=== PATIENT | male | born 1965 | race Caucasian/White ===

== ENCOUNTER 2017-11-12 09:57 | Outpatient (CLI) | payer MEDICARE, MEDICAID ==
[~2017-11-12 09:57] MED LIST: AMBIEN10 M1 ORAL; AMBIEN5 MG ORAL; CHLORDIAZEPOXIDE PO; ESCITALOPRAM OX10 MG ORAL; NALTREXONE HCL50 MG PO; NICODERM CQ1 EAC1 TDERMAL; NORVIR100 MG ORAL; PRINIVIL20 MG ORAL; REGLAN10 MG ORAL; REYATAZ150 MG ORAL; TRUVADA1 TAB ORAL; VALIUM10 MG ORAL; ZOFRAN4 M3 ORAL
--- NOTE | 2017-11-12 12:50 | Diagnostic Imaging Report ---
Indication: Dyspnea Comparison: 04/08/2014 2 views of the chest obtained. Findings: The interstitium of the lung appears slightly more prominent but this is felt to be more technical in nature. Accounting for differences in technique there is no change compared to the 2013 examination. There is suggestion of mild bronchial wall thickening and prominence of the bronchovascular markings centrally. Heart is normal in size. No pleural effusion seen. No consolidation or infiltrate identified. IMPRESSION: No acute disease identified. Prominence of bronchovascular markings centrally likely accounted for by chronic bronchitis and accentuated technique. Findings discussed with Dr. Alcaraz via telephone
== END 2017-11-12 11:57 | disposition home or self-care (01) ==
LOC: RAD 09:57
DX: J45.20 Mild intermittent asthma, uncomplicated (principal)
CPT/HCPCS: 71046

== ENCOUNTER 2018-01-02 11:23 | Inpatient (IN) | payer MEDICARE, MEDICAID ==
[~2018-01-02] VITALS: Ht 172.7 cm; Wt 77.6 kg
[2018-01-02] MEDS ORDERED: LORazepam 0.5mg tab ORAL PRN (13:30)
[2018-01-02] MEDS ORDERED: Ritonavir 100mg tab ORAL SCH (13:30)
--- NOTE | 2018-01-02 14:08 | Infectious Diseases Prog Note ---
Assessment/Plan Assessment/Plan Full consult to follow: A) 1) refractory genital herpes simplex virus infection 2) drug rash 3) pmh noted P) 1) iv acyclovir 2) observe clinically 3) d/w Dr. Alcaraz 4) thank you Subjective Allergies: Coded Allergies: PREDNISONE (Verified Allergy, Mild, 04/07/14) UPSET STOMACNH VANCOMYCIN (Verified Allergy, Mild, Rash, 04/07/14) Objective Current Medications Medications (Trade) Dose Ordered Sig/Maryuri Route PRN Reason Start Time Stop Time Status Last Admin Dose Admin Acetaminophen (Tylenol) 650 mg Q4H PRN ORAL Mild Pain/Temp > 100.5 01/02/18 13:30 02/01/18 13:29 UNV Acyclovir 750 mg/ Sodium Chloride 110 ml @ 110 mls/hr Q8HR IVPB 01/02/18 14:00 02/01/18 13:59 UNV Ceftriaxone Sodium 1 gm/ Dextrose 55 ml @ 110 mls/hr Q24H IVPB 01/02/18 13:30 01/09/18 13:29 UNV Diphenhydramine HCl (Benadryl) 50 mg Q6H PRN ORAL Itching 01/02/18 13:30 02/01/18 13:29 UNV Heparin Sodium (Porcine) (Heparin 5000 units/ml) 5,000 units EVERY 12 HOURS SUBQ 01/02/18 21:00 02/01/18 20:59 UNV Lisinopril (Prinivil) 20 mg DAILY ORAL 01/03/18 09:00 02/02/18 08:59 UNV Lorazepam (Ativan) 0.5 mg EVERY 4 HOURS PRN ORAL For Anxiety 01/02/18 13:30 01/09/18 13:29 UNV Methylprednisolone Sodium Succinate (Solu-MEDROL) 20 mg DAILY IVP 01/02/18 13:30 02/01/18 13:29 UNV Morphine Sulfate (Morphine Sulfate) 2 mg Q4H PRN IVP For Pain 01/02/18 13:30 01/09/18 13:29 UNV Non-Formulary Medication (Non-Formulary Med) 1 ea DAILY ORAL 01/02/18 13:30 02/01/18 13:29 UNV Non-Formulary Medication (Non-Formulary Med) 1 ea DAILY ORAL 01/02/18 13:30 02/01/18 13:29 UNV Ondansetron HCl (Zofran) 4 mg Q6H PRN IVP Nausea & Vomiting 01/02/18 13:30 02/01/18 13:29 UNV Ritonavir (Norvir) 100 mg DAILY ORAL 01/02/18 13:30 02/01/18 13:29 UNV Zolpidem Tartrate (Ambien) 10 mg HSPRN PRN ORAL Insomnia 01/02/18 13:30 01/09/18 13:29 UNV JERRELL FAIRCHILD Jan 02, 2018 14:08
[2018-01-02] MEDS: Solu-MEDROL 40mg Inj IVP SCH (15:46)
[2018-01-02 16:00] VITALS: BP 104/58
[2018-01-02] MEDS: Morphine Sulfate 2mg/ml Inj IVP PRN (17:30)
[2018-01-02] MEDS: Acyclovir 750 MG in NS 110 ML IV SCH ×2 (17:45→23:59)
[2018-01-02] MEDS: cefTRIAXone 1 GM in NS 55 ML IVPB SCH (17:52)
[2018-01-02] MEDS: Lisinopril 10mg tab ORAL SCH (18:01)
[2018-01-02] MEDS: NORVIR 100 MG ORAL SCH (18:36)
[2018-01-02] MEDS: DESCOVY ORAL SCH (18:37)
[2018-01-02] MEDS: REYATAZ 300 MG ORAL SCH (18:37)
[2018-01-02 19:09] LABS: HEMATOCRIT 44.3 % (42.0-52.0); HEMOGLOBIN 15.9 G/DL (14.2-18.0); MEAN CORPUSCULAR VOLUME 98 FL (80-99); PLATELET COUNT 176 K/UL (150-450); RED BLOOD COUNT 4.53 M/UL (4.70-6.10); RED CELL DISTRIBUTION WIDTH 11.9 % (11.6-14.8); WHITE BLOOD COUNT 4.6 K/UL (4.8-10.8)
[2018-01-02 19:11] LABS: BASOPHILS % (AUTO) 0.8 % (0.0-2.0); EOSINOPHILS % (AUTO) 1.3 % (0.0-3.0); LYMPHOCYTES % (AUTO) 6.5 % (20.0-45.0); NEUTROPHILS % (AUTO) 89.4 % (45.0-75.0)
[2018-01-02 19:34] LABS: ALANINE AMINOTRANSFERASE 35 U/L (12-78); ALBUMIN 3.8 G/DL (3.4-5.0); ALBUMIN/GLOBULIN RATIO 1.3 (1.0-2.7); ALKALINE PHOSPHATASE 99 U/L (46-116); ANION GAP 6 mmol/L (5-15); ASPARTATE AMINO TRANSFERASE 28 U/L (15-37); BLOOD UREA NITROGEN 17 mg/dL (7-18); CARBON DIOXIDE 25 MMOL/L (21-32); CHLORIDE 104 MMOL/L (98-107); CREATININE 1.1 MG/DL (0.55-1.30); POTASSIUM 4.7 MMOL/L (3.5-5.1); SODIUM 135 MMOL/L (136-145)
[2018-01-02] MEDS: Heparin 5000 units/ml inj SUBQ SCH (20:59)
[2018-01-02 21:21] VITALS: BP 114/64
--- NOTE | 2018-01-03 | History and Physical Report ---
DATE OF ADMISSION: 01/02/2018 HISTORY OF PRESENT ILLNESS: The patient is a 52-year-old white male, admitted with apparent acyclovir resistant to herpes involving the glans penis and prepuce. He also has a new generalized skin eruption secondary to sulfa antibiotics. The patient has a two-week history of a flare of genital herpes involving the glans penis, which has been extremely painful. He was previously on suppressive therapy with acyclovir 800 mg daily at the time that his new lesion appeared. He has had only one or two prior outbreaks. The lesion has progressed despite increasing the dose of acyclovir and despite changing his medication to valacyclovir 1000 mg p.o. q.8 h. He also had a small purulent skin lesion of his left cheek for which he was prescribed trimethoprim sulfa and unfortunately this morning developed a florid Bactrim/sulfa maculopapular rash with pruritus. The patient was seen in medical office today and was seen to have a complete erosion of the skin on the dorsum of the glans penis and purulence involving the area of the prepuce and foreskin. He was in significant pain and discomfort and in view of the likelihood that his herpes was acyclovir resistant, he was admitted for further therapy. PAST MEDICAL HISTORY: Remarkable for long-standing HIV with an undetectable viral load, on antiviral therapy. He also has a past history of alcoholism and is involved in numerous 12-step programs and is presently sober for several years. He has had one previous [facility] admission for apparent alcohol withdrawal. Past medical history is otherwise unremarkable. He also has a history of asthma and reactive airway disease. Past medical history is also remarkable for insomnia, essential hypertension, testicular hypofunction, generalized anxiety disorder, and hyperlipidemia. PAST SURGICAL HISTORY: None. MEDICATIONS: At the time of admission including albuterol by nebulization as well as albuterol HFA, Norvir 100 mg daily, Reyataz 300 mg daily, zolpidem 10 mg at bedtime p.r.n. sleep, lorazepam 1 mg twice daily, Descovy 200/25 once daily, lisinopril 30 mg p.o. daily, and Valtrex 1 gram p.o. t.i.d. ALLERGIES: He has allergy to vancomycin and HCl. FAMILY HISTORY: Parents are . Tobacco use, he is a light smoker. REVIEW OF SYSTEMS: He denies present cough, shortness of breath, chest pain, CARDOZA or orthopnea. GASTROINTESTINAL: Denies nausea, vomiting, diarrhea, or abdominal pain. CARDIAC: Denies chest pain or shortness of breath. PHYSICAL EXAMINATION: GENERAL: A slight built white male in significant distress due to penile pain and generalized rash. HEENT: Remarkable for a generalized rash. SKIN: Generalized maculopapular rash. CHEST: Clear. HEART: S1 and S2 normal without murmur or gallop. ABDOMEN: Soft without palpable liver or spleen. EXTREMITIES: Remarkable for skin rash. MALE GENITALIA: There is erosion of the glans penis, erosions involving the foreskin remnant. RECTAL: Deferred. NEUROLOGIC: He is alert and oriented. Cranial nerves II through XII normal. Motor, sensory and cerebellar modalities are intact. ASSESSMENT: 1. Acyclovir resistant to herpes simplex virus infection on the glans penis. 2. Sulfa allergy, new onset with maculopapular rash. 3. History of asthma and reactive airways disease. 4. Vancomycin allergy. 5. Hypogonadism. 6. Hyperlipidemia. 7. Insomnia. 8. Anxiety. PLAN: To increase his exposure to acyclovir by giving him 10 mg/kg q.8 h. intravenously. He will be seen in Infectious Disease consultation with Dr. Pearson. He will have topical therapy to the glans penis. Pain, anxiety and insomnia management. If he fails to respond to intravenous acyclovir, then other modalities such as foscarnet may be necessary. This will be done in consultation with Infectious Disease. Trevor Alcaraz M.D. DR: MJ JOB#: [id number] CC:
[2018-01-03] MEDS: Morphine Sulfate 2mg/ml Inj IVP PRN ×5 (00:40→23:32)
[2018-01-03 06:58] LABS: BASOPHILS % (AUTO) 0.5 % (0.0-2.0); HEMATOCRIT 44.3 % (42.0-52.0); HEMOGLOBIN 15.8 G/DL (14.2-18.0); LYMPHOCYTES % (AUTO) 14.3 % (20.0-45.0); MEAN CORPUSCULAR VOLUME 98 FL (80-99); MONOCYTES % (AUTO) 2.9 % (1.0-10.0); NEUTROPHILS % (AUTO) 82.3 % (45.0-75.0); PLATELET COUNT 192 K/UL (150-450); RED BLOOD COUNT 4.51 M/UL (4.70-6.10); RED CELL DISTRIBUTION WIDTH 11.7 % (11.6-14.8); WHITE BLOOD COUNT 4.8 K/UL (4.8-10.8)
[2018-01-03 07:38] LABS: ALANINE AMINOTRANSFERASE 34 U/L (12-78); ALBUMIN 3.6 G/DL (3.4-5.0); ALBUMIN/GLOBULIN RATIO 1.1 (1.0-2.7); ALKALINE PHOSPHATASE 85 U/L (46-116); ANION GAP 8 mmol/L (5-15); ASPARTATE AMINO TRANSFERASE 24 U/L (15-37); BILIRUBIN,TOTAL 1.6 MG/DL (0.2-1.0); BLOOD UREA NITROGEN 22 mg/dL (7-18); CALCIUM 9.5 MG/DL (8.5-10.1); CARBON DIOXIDE 24 MMOL/L (21-32); CHLORIDE 104 MMOL/L (98-107); POTASSIUM 4.7 MMOL/L (3.5-5.1); SODIUM 136 MMOL/L (136-145)
[2018-01-03 07:40] LABS: BILIRUBIN,DIRECT 0.2 MG/DL (0.0-0.3)
[2018-01-03 08:00] VITALS: BP 111/85
[2018-01-03] MEDS: cefTRIAXone 1 GM in NS 55 ML IVPB SCH ×2 (08:02→08:11)
[2018-01-03] MEDS: Acyclovir 750 MG in NS 110 ML IV SCH ×3 (08:15→23:32)
[2018-01-03] MEDS: Heparin 5000 units/ml inj SUBQ SCH ×2 (08:54→20:32)
[2018-01-03] MEDS: Lisinopril 10mg tab ORAL SCH (08:56)
[2018-01-03] MEDS: Solu-MEDROL 40mg Inj IVP SCH (08:56)
[2018-01-03 12:00] VITALS: BP 97/54
--- NOTE | 2018-01-03 14:45 | Infectious Diseases Prog Note ---
Assessment/Plan Assessment/Plan Full consult to follow: A) 1) refractory genital herpes simplex virus infection 2) drug rash 3) pmh noted P) 1) iv acyclovir, may need foscarnet if no improvement 2) observe clinically 3) d/w Dr. Alcaraz 4) d/w pharmacy Subjective Allergies: Coded Allergies: SULFAMETHOXAZOLE (Verified Allergy, Intermediate, 01/02/18) rash TRIMETHOPRIM (Verified Allergy, Intermediate, 01/02/18) rash PREDNISONE (Verified Allergy, Mild, 04/07/14) UPSET STOMACNH VANCOMYCIN (Verified Allergy, Mild, Rash, 04/07/14) Objective Vital Signs Last 24 Hour Vital Signs Date Time Temp Pulse Resp B/P (MAP) Pulse Ox O2 Delivery O2 Flow Rate FiO2 01/03/18 14:01 97.6 01/03/18 13:31 97.6 01/03/18 12:00 97.6 76 20 97/54 100 97.6 01/03/18 08:56 111/85 01/03/18 08:02 99.3 01/03/18 08:00 97.6 76 20 111/85 97 97.6 01/02/18 21:21 99.3 99 20 114/64 99.3 01/02/18 18:28 99.2 01/02/18 18:01 104/58 01/02/18 17:30 101.7 01/02/18 17:29 101.7 01/02/18 16:00 101.7 117 19 104/58 93 101.7 Height (Feet): 5 Height (Inches): 8.00 Weight (Pounds): 171 Laboratory Tests Test 01/02/18 18:45 01/03/18 05:05 White Blood Count 4.6 K/UL (4.8-10.8) L 4.8 K/UL (4.8-10.8) Red Blood Count 4.53 M/UL (4.70-6.10) L 4.51 M/UL (4.70-6.10) L Hemoglobin 15.9 G/DL (14.2-18.0) 15.8 G/DL (14.2-18.0) Hematocrit 44.3 % (42.0-52.0) 44.3 % (42.0-52.0) Mean Corpuscular Volume 98 FL (80-99) 98 FL (80-99) Mean Corpuscular Hemoglobin 35.0 PG (27.0-31.0) H 35.0 PG (27.0-31.0) H Mean Corpuscular Hemoglobin Concent 35.9 G/DL (32.0-36.0) 35.7 G/DL (32.0-36.0) Red Cell Distribution Width 11.9 % (11.6-14.8) 11.7 % (11.6-14.8) Platelet Count 176 K/UL (150-450) 192 K/UL (150-450) Mean Platelet Volume 6.9 FL (6.5-10.1) 7.6 FL (6.5-10.1) Neutrophils (%) (Auto) 89.4 % (45.0-75.0) H 82.3 % (45.0-75.0) H Lymphocytes (%) (Auto) 6.5 % (20.0-45.0) L 14.3 % (20.0-45.0) L Monocytes (%) (Auto) 2.0 % (1.0-10.0) 2.9 % (1.0-10.0) Eosinophils (%) (Auto) 1.3 % (0.0-3.0) 0.0 % (0.0-3.0) Basophils (%) (Auto) 0.8 % (0.0-2.0) 0.5 % (0.0-2.0) Sodium Level 135 MMOL/L (136-145) L 136 MMOL/L (136-145) Potassium Level 4.7 MMOL/L (3.5-5.1) 4.7 MMOL/L (3.5-5.1) Chloride Level 104 MMOL/L (98-107) 104 MMOL/L (98-107) Carbon Dioxide Level 25 MMOL/L (21-32) 24 MMOL/L (21-32) Anion Gap 6 mmol/L (5-15) 8 mmol/L (5-15) Blood Urea Nitrogen 17 mg/dL (7-18) 22 mg/dL (7-18) H Creatinine 1.1 MG/DL (0.55-1.30) 1.0 MG/DL (0.55-1.30) Estimat Glomerular Filtration Rate > 60 mL/min (>60) > 60 mL/min (>60) Glucose Level 128 MG/DL (74-106) H 155 MG/DL (74-106) H Calcium Level 9.0 MG/DL (8.5-10.1) 9.5 MG/DL (8.5-10.1) Total Bilirubin 1.0 MG/DL (0.2-1.0) 1.6 MG/DL (0.2-1.0) H Aspartate Amino Transf (AST/SGOT) 28 U/L (15-37) 24 U/L (15-37) Alanine Aminotransferase (ALT/SGPT) 35 U/L (12-78) 34 U/L (12-78) Alkaline Phosphatase 99 U/L (46-116) 85 U/L (46-116) Total Protein 6.7 G/DL (6.4-8.2) 7.0 G/DL (6.4-8.2) Albumin 3.8 G/DL (3.4-5.0) 3.6 G/DL (3.4-5.0) Globulin 2.9 g/dL 3.4 g/dL Albumin/Globulin Ratio 1.3 (1.0-2.7) 1.1 (1.0-2.7) Direct Bilirubin 0.2 MG/DL (0.0-0.3) Current Medications Medications (Trade) Dose Ordered Sig/Maryuri Route PRN Reason Start Time Stop Time Status Last Admin Dose Admin Acetaminophen (Tylenol) 650 mg Q4H PRN ORAL Mild Pain/Temp > 100.5 01/02/18 13:30 02/01/18 13:29 01/02/18 17:29 Acyclovir 750 mg/ Sodium Chloride 110 ml @ 110 mls/hr Q8HR@0000,0800,1600 IV 01/02/18 17:00 02/01/18 16:59 01/03/18 08:15 Ceftriaxone Sodium 1 gm/ Sodium Chloride 55 ml @ 110 mls/hr Q24H IVPB 01/02/18 16:30 01/09/18 16:29 01/02/18 17:52 Dexamethasone (Decadron) 10 mg QID ORAL 01/03/18 18:00 02/02/18 17:59 UNV Diphenhydramine HCl (Benadryl) 50 mg Q6H PRN ORAL Itching 01/02/18 13:30 02/01/18 13:29 01/03/18 08:02 Heparin Sodium (Porcine) (Heparin 5000 units/ml) 5,000 units EVERY 12 HOURS SUBQ 01/02/18 21:00 02/01/18 20:59 01/02/18 20:59 Lidocaine (Xylocaine 5% cream) 1 applic PRN PRN TOPIC pain 01/03/18 14:00 02/02/18 13:59 Lidocaine HCl (Xylocaine Viscous) 15 ml Q4H PRN ORAL For Pain 01/03/18 13:30 02/02/18 13:29 Lisinopril (Zestril) 30 mg DAILY ORAL 01/02/18 16:30 02/01/18 16:29 01/03/18 08:56 Lorazepam (Ativan) 1 mg Q4H PRN ORAL For Anxiety 01/03/18 13:30 01/10/18 13:29 Morphine Sulfate (Morphine Sulfate) 2 mg Q4H PRN IVP Moderate to Severe Pain 01/02/18 15:00 01/09/18 14:59 01/03/18 13:31 Nicotine (Nicoderm) 1 patch Q24H TDERMAL 01/03/18 14:00 02/02/18 13:59 Ondansetron HCl (Zofran) 4 mg Q6H PRN IVP Nausea & Vomiting 01/02/18 13:30 02/01/18 13:29 Patient Own Medication (Patient's Own Med) 1 ea QPM ORAL 01/02/18 16:30 02/01/18 16:29 01/02/18 18:36 Patient Own Medication (Patient's Own Med) 1 ea QPM ORAL 01/02/18 16:30 02/01/18 16:29 01/02/18 18:37 Patient Own Medication (Patient's Own Med) 1 ea QPM ORAL 01/02/18 16:30 02/01/18 16:29 01/02/18 18:37 Zolpidem Tartrate (Ambien) 5 mg HSPRN PRN ORAL Insomnia 01/02/18 13:30 01/09/18 13:29 JERRELL FAIRCHILD 2, 2018 14:45
[2018-01-03 16:00] VITALS: BP 102/53
[2018-01-03] MEDS: DESCOVY ORAL SCH (16:54)
[2018-01-03] MEDS: REYATAZ 300 MG ORAL SCH (16:54)
[2018-01-03] MEDS: NORVIR 100 MG ORAL SCH (16:54)
[2018-01-03] MEDS: Dexamethasone Elixir 0.25mg/2.5ml MISC SCH ×2 (18:51→21:58)
[2018-01-03 20:00] VITALS: BP 103/66
[2018-01-03] MEDS: LORazepam 0.5mg tab ORAL PRN (20:13)
--- NOTE | 2018-01-03 21:52 | General Progress Note ---
Progress Note Progress Note The patient was seen and examined by me. He complains of pruritic rash, painful sores on his tongue and in his mouth, no improvement of the heroesvirus on his glans penis which is painful. States that MS doses make him drowsy for an hour or so but that his pain returns quickly. VSS. Exam: erosion on dorsum of penis looks slightly better, foreskin area less involved. Mouth has petechiae on soft palate and small erosions under tongue, rash less inflamed and acute. Assessment: HSV probably acyclovir resistant Sulfa skin and mouth eruption HIV Plan; Continue IV acyclovir, dc rocephin and steroid, add oral lidocaine and tiical lidocain to penis lesion. Consider foscarnet. Discussed with Dr. Edwina Alcaraz M.D. FERNANDEZ ALCARAZ Jan 03, 2018 21:52
--- NOTE | 2018-01-03 22:00 | Consultation ---
DATE OF CONSULTATION: 01/03/2018 INFECTIOUS DISEASE CONSULTATION CONSULTING PHYSICIAN: Farhan Pearson M.D. ATTENDING PHYSICIAN: Trevor Alcaraz M.D. REASON FOR CONSULTATION: Refractory herpes simplex virus genital infection involving the penis. PATIENT'S CHIEF COMPLAINT COMING INTO THE HOSPITAL: Acyclovir-resistant herpes simplex virus. HISTORY OF PRESENT ILLNESS: This is a 52-year-old male, who has a history of HIV with undetectable viral load. The patient has what looks like resistant herpes simplex virus infection of the glans penis and prepuce. The patient has a two-week history of flare of general herpes involving the glans penis. It was extremely painful. The patient has been on suppressive therapy with acyclovir for sometime. When this outbreak happened, he was given treatment with acyclovir and then valacyclovir 1000 mg q.8 h., but there was no improvement. The patient also has drug rash secondary to Bactrim also. The patient was admitted for IV acyclovir. Infectious Disease consultation is requested. The patient will be placed on 10 mg/kg of IV acyclovir and currently is getting 750 mg IV q.8 h. Case discussed with Dr. Alcaraz and also with the patient and also with the pharmacy. MAR was noted. Orders noted. Notes and records were reviewed. Case was discussed with RN. PAST MEDICAL HISTORY: The patient has a past medical history of HIV with undetectable viral load. He is on antiretroviral therapy. He has a history of alcoholism in the past. He has a history of alcohol withdrawal. Past medical history is otherwise negative for diabetes. Past medical history is, otherwise, positive for asthma, insomnia, and hypertension. He has a history of hypertension, history of testicular hypofunction. Denies anxiety disorder. Hyperlipidemia. MEDICATIONS: Prior to admission included albuterol nebulizer, Norvir, Reyataz, Descovy, lisinopril, Valtrex, and lorazepam. He was on chronic acyclovir for some time. He has been on zolpidem and lorazepam. Upon reviewing the MAR, he is also on Decadron, nicotine patch, lidocaine, and lorazepam. He was on Rocephin, which I discontinued. He is on IV acyclovir 750 mg IV q.8 h., lisinopril, morphine, acetaminophen, zolpidem, diphenhydramine, and Zofran. ALLERGIES: Vancomycin and HCl. SOCIAL HISTORY: Positive for ETOH use in the past. No smoking. No IV drug abuse. FAMILY HISTORY: Noncontributory per the records. No mention of exposure to tuberculosis or cancer. REVIEW OF SYSTEMS: CONSTITUTIONAL: The patient has no focal weakness, has generalized fatigue. HEAD AND NECK: No head pain or neck pain. No thrush or dysphagia. No sinus tenderness or neck stiffness. No change in vision. CARDIAC: No chest pain or palpitations. GASTROINTESTINAL: No nausea, vomiting, or diarrhea. GENITOURINARY: He has penile lesions and pain. No CVA tenderness. PULMONARY: No congestion, shortness of breath, hemoptysis, or secretions. SKIN: No other rash. NEUROLOGIC: No seizures. No CVA tenderness. no thrush. No dysphagia. No weight loss or night sweats. PHYSICAL EXAMINATION: GENERAL: Alert and responsive, in no distress. VITAL SIGNS: The patient's temperature is 97.6 degrees, pulse rate is 76, respiratory rate 20, blood pressure 97/54, and saturation 100%. HEAD AND NECK: Oral exam, no thrush. Eye exam, no icterus. Normocephalic. No facial droop. No neck stiffness. Neck is supple. LUNGS: Clear bilaterally. No rhonchi or rales. HEART: Regular rate and rhythm. No gallop or murmur. ABDOMEN: Soft. Positive bowel sounds. Nontender. SKIN: He has maculopapular rash, drug rash. MUSCULOSKELETAL: No effusion. Legs are without cellulitis. PERIPHERAL VASCULAR: No gangrene. GENITOURINARY: He has no CVA tenderness. No Olivarez. The patient has what looks like herpetic lesion involving the glans penis. There is swelling at the site and it is painful. There is erosion at the site and herpetic like lesion. LINES: Line sites is without phlebitis. NEUROLOGIC: Intact. Nonfocal. Alert and oriented x3. LABORATORY AND DIAGNOSTIC DATA: White count 4.8, hemoglobin 15.8. Creatinine is 1.0. ASSESSMENT AND PLAN: 1. The patient has refractory herpes simplex virus of the glans penis or genital herpes infection, refractory to treatment as an outpatient with acyclovir and also Valtrex or valacyclovir. The patient will be admitted for IV acyclovir at 10 mg/kg every 8 hour. He is on 750 mg q.8 h. at this time. We will observe for 3 to 5 days. If there is no improvement, then consider IV foscarnet for acyclovir-resistant herpes simplex virus infection of the penis and genital herpes. Continue IV acyclovir for now. Watch laboratories. Case was discussed with Dr. Alcaraz and the pharmacy about the acyclovir and also possible use of foscarnet in the future if there is no improvement. 2. Drug rash secondary to Bactrim. He is on steroids, and Bactrim is held. 3. Human immunodeficiency virus with viral load undetectable. 4. The patient has history of hypertension. 5. Blood pressure treatment per Dr. Alcaraz. 6. Asthma. 7. Albuterol treatment. 8. Insomnia. 9. Testicular hypofunction. 10. Anxiety. 11. Hyperlipidemia. 12. Allergies to prednisone, Bactrim, and vancomycin. 13. Family history noncontributory. 14. Social history positive for ethanol in the past. 15. MAR was noted. 16. Case discussed with RN. 17. Case discussed with Dr. Alcaraz. 18. Case discussed with the patient. 19. Continue treatment per primary consultants. 20. Case discussed with pharmacy. Farhan Pearson M.D. DR: SHIRIN JOB#: [id number] CC: ROBERTO
[2018-01-03] MEDS: Zolpidem 5mg tab ORAL PRN (22:04)
[2018-01-04] VITALS: BP 117/63
[2018-01-04] MEDS: Morphine Sulfate 2mg/ml Inj IVP PRN ×3 (03:47→13:45)
[2018-01-04 04:00] VITALS: BP 110/70
[2018-01-04] MEDS: LORazepam 0.5mg tab ORAL PRN ×3 (06:32→20:16)
[2018-01-04] MEDS: Acyclovir 750 MG in NS 110 ML IV SCH ×3 (08:21→23:19)
[2018-01-04] MEDS: Dexamethasone Elixir 0.25mg/2.5ml MISC SCH ×4 (08:21→20:16)
[2018-01-04] MEDS: Lisinopril 10mg tab ORAL SCH (08:23)
[2018-01-04] MEDS: Heparin 5000 units/ml inj SUBQ SCH ×2 (08:24→19:54)
[2018-01-04 09:00] VITALS: BP 101/60
[2018-01-04] MEDS: Lidocaine 2% Visc 15ml soln ORAL PRN ×3 (10:52→23:14)
[2018-01-04 11:50] VITALS: BP 132/77
--- NOTE | 2018-01-04 14:01 | General Progress Note ---
Assessment/Plan Assessment/Plan coverage for dr Alcaraz ASSESSMENT Refractory genital herpes simplex virus of the glans penis Drug rash secondary to Bactrim. HIV status with viral load undetectable. Hypertension. Asthma. Anxiety Insomnia Multiple allergies: Prednisone, Bactrim, vancomycin Nicotine dependency with withdrawal Hx of ETOH abuse PLAN OF CARE [facility] floor IV acyclovir ID follows oral steroids for rash viscous Xylocaine swish and spit bland diet topical therapy for glans penis with Xylocaine cream a/pruritic prn pain management ( changed to Dilaudid), monitor effectiveness BP management Nicotine patch , corrections counselor on smoking cessation corrections counselor to continue abstinence from ETOH ART therapy, viral load undetectable BP management with JEMAL and closely monitor BP O2 HHN prn, no evidence of asthma exacerbation anxiolytics prn Ambien prn case discussed and evaluated by supervising physician Subjective Allergies: Coded Allergies: SULFAMETHOXAZOLE (Verified Allergy, Intermediate, 01/02/18) rash TRIMETHOPRIM (Verified Allergy, Intermediate, 01/02/18) rash PREDNISONE (Verified Allergy, Mild, 04/07/14) UPSET STOMACNH VANCOMYCIN (Verified Allergy, Mild, Rash, 04/07/14) Subjective c/o pain with eating pain and discomfort in the mouth and perineal area afebrile, no leukocytosis Objective Last 24 Hour Vital Signs Date Time Temp Pulse Resp B/P (MAP) Pulse Ox O2 Delivery O2 Flow Rate FiO2 01/04/18 11:50 97.4 71 18 132/77 95 97.4 01/04/18 09:00 97.5 90 18 101/60 98 97.5 01/04/18 08:51 97.9 01/04/18 08:23 110/70 01/04/18 08:21 97.9 01/04/18 04:00 97.9 85 18 110/70 98 97.9 01/04/18 00:00 97.5 94 19 117/63 96 97.5 01/04/18 00:00 Room Air 01/03/18 20:00 98.1 82 19 103/66 97 98.1 01/03/18 18:32 97.9 01/03/18 16:00 97.9 94 19 102/53 96 97.9 Intake and Output 01/03/18 01/04/18 19:00 07:00 Intake Total 760 ml 480 ml Balance 760 ml 480 ml Intake Oral 760 ml 480 ml # Voids 2 2 Height (Feet): 5 Height (Inches): 8.00 Weight (Pounds): 171 General Appearance: WD/WN - A/A/O x 4v , no apparent distress EENT: PERRL/EOMI, other - small erosions under tongue, Neck: non-tender, supple Cardiovascular: normal peripheral pulses, normal rate, no JVD Respiratory/Chest: chest wall non-tender, lungs clear, no accessory muscle use Abdomen: normal bowel sounds, non tender, soft Genitourinary/Rectal: other - penis lesions drying Extremities: normal range of motion, no calf tenderness Neurologic: no motor/sensory deficits, alert, oriented x 3, responsive, normal mood/affect Skin: warm/dry, rash - maculopapular body rash Darius (Kathy Hunter NP Jan 04, 2018 14:01
[2018-01-04] MEDS: HYDROmorphone 4mg tab ORAL PRN ×3 (14:25→23:15)
[2018-01-04] MEDS: Fluconazole 100mg tab ORAL SCH (14:25)
[2018-01-04] MEDS ORDERED: Albuterol/Ipratropium 3ml neb HHN PRN (15:00)
[2018-01-04 15:56] VITALS: BP 94/60
[2018-01-04] MEDS: DESCOVY ORAL SCH (16:48)
[2018-01-04] MEDS: REYATAZ 300 MG ORAL SCH (16:48)
[2018-01-04] MEDS: NORVIR 100 MG ORAL SCH (16:49)
[2018-01-04 16:56] VITALS: BP 100/62
[2018-01-04] MEDS: Zolpidem 5mg tab ORAL PRN (23:14)
[2018-01-05] VITALS: BP 106/66
[2018-01-05] MEDS: HYDROmorphone 4mg tab ORAL PRN ×6 (03:42→21:51)
[2018-01-05 04:00] VITALS: BP 110/63
[2018-01-05] MEDS: Acyclovir 750 MG in NS 110 ML IV SCH ×2 (07:40→16:54)
[2018-01-05] MEDS: Fluconazole 100mg tab ORAL SCH (07:41)
[2018-01-05] MEDS: Lisinopril 10mg tab ORAL SCH (07:48)
[2018-01-05] MEDS: Dexamethasone Elixir 0.25mg/2.5ml MISC SCH ×4 (07:48→21:50)
[2018-01-05] MEDS: Heparin 5000 units/ml inj SUBQ SCH ×3 (07:49→21:00)
[2018-01-05 08:00] VITALS: BP 98/59
[2018-01-05 08:43] LABS: BASOPHILS % (AUTO) 1.2 % (0.0-2.0); EOSINOPHILS % (AUTO) 1.3 % (0.0-3.0); HEMATOCRIT 42.4 % (42.0-52.0); HEMOGLOBIN 14.9 G/DL (14.2-18.0); LYMPHOCYTES % (AUTO) 34.6 % (20.0-45.0); MEAN CORPUSCULAR VOLUME 101 FL (80-99); MONOCYTES % (AUTO) 6.4 % (1.0-10.0); NEUTROPHILS % (AUTO) 56.5 % (45.0-75.0); PLATELET COUNT 162 K/UL (150-450); RED BLOOD COUNT 4.21 M/UL (4.70-6.10); RED CELL DISTRIBUTION WIDTH 12.7 % (11.6-14.8); WHITE BLOOD COUNT 8.7 K/UL (4.8-10.8)
[2018-01-05 09:30] LABS: ANION GAP 4 mmol/L (5-15); BLOOD UREA NITROGEN 12 mg/dL (7-18); CALCIUM 8.8 MG/DL (8.5-10.1); CARBON DIOXIDE 28 MMOL/L (21-32); CHLORIDE 105 MMOL/L (98-107); CREATININE 0.7 MG/DL (0.55-1.30); POTASSIUM 4.6 MMOL/L (3.5-5.1); SODIUM 137 MMOL/L (136-145)
[2018-01-05 12:00] VITALS: BP 102/68
--- NOTE | 2018-01-05 12:47 | Wound Nurse Progress Note ---
Wound RN Progress Note Wound Consult Assessed this Pt. Pt has genital herpes and generalized rashes due to allergic reaction to medication. No wound care recommendation at this time. Please follow MD's orders. COURTNEY COTTON RN Jan 05, 2018 12:47
[2018-01-05] MEDS: LORazepam 0.5mg tab ORAL PRN ×2 (14:45→19:48)
[2018-01-05 16:00] VITALS: BP 112/65
--- NOTE | 2018-01-05 16:16 | Infectious Diseases Prog Note ---
Assessment/Plan Assessment/Plan Medicine coverage for Dr. Alcaraz ASSESSMENT AND PLAN: 1. genital/penis refractory herpes simplex virus infection - clinically better, lesions drying and less painful and less redness - continue iv acyclovir - day # 3 - watch labs - d/w Dr. Alcaraz 2. Drug rash secondary to Bactrim. He is on steroids, and Bactrim is held, steroids, ? thrush, on diflucan, fevers better 3. Human immunodeficiency virus with viral load undetectable. 4. The patient has history of hypertension. 5. Blood pressure treatment per Dr. Alcaraz. 6. Asthma. 7. Albuterol treatment. 8. Insomnia. 9. Testicular hypofunction. 10. Anxiety. 11. Hyperlipidemia. 12. Allergies to prednisone, Bactrim, and vancomycin. 13. Family history noncontributory. 14. Social history positive for ethanol in the past. 15. MAR was noted. 16. Case discussed with RN. 17. Case discussed with Dr. Alcaraz. 18. Case discussed with the patient. 19. Continue treatment per primary consultants. 20. Case discussed with pharmacy. Subjective Constitutional: Reports: other - + mouth sore pain, Denies: fever, fatigue HEENT: Denies: congestion Respiratory: Denies: shortness of breath Cardiovascular: Denies: chest pain Gastrointestinal/Abdominal: Denies: nausea, vomiting Genitourinary: Denies: dysuria, hematuria Neurologic: Denies: headache, numbness Psychiatric: Denies: depression Skin: Reports: rash - less Hematologic: Denies: bleeding Musculoskeletal: Denies: pain Allergies: Coded Allergies: SULFAMETHOXAZOLE (Verified Allergy, Intermediate, 01/02/18) rash TRIMETHOPRIM (Verified Allergy, Intermediate, 01/02/18) rash PREDNISONE (Verified Allergy, Mild, 04/07/14) UPSET STOMACNH VANCOMYCIN (Verified Allergy, Mild, Rash, 04/07/14) Objective Vital Signs Last 24 Hour Vital Signs Date Time Temp Pulse Resp B/P (MAP) Pulse Ox O2 Delivery O2 Flow Rate FiO2 01/05/18 14:09 98.0 01/05/18 13:10 98.0 01/05/18 12:00 97.6 83 17 102/68 98 Room Air 97.6 01/05/18 09:14 98.0 01/05/18 08:00 98.0 88 18 98/59 97 Room Air 98.0 01/05/18 04:00 97.7 87 20 110/63 96 Room Air 97.7 01/05/18 00:00 97.3 82 19 106/66 97 97.3 01/04/18 18:35 98.0 01/04/18 16:56 98.0 76 17 100/62 98 98.0 Height (Feet): 5 Height (Inches): 8.00 Weight (Pounds): 171 General Appearance: no acute distress HEENT: atraumatic, anicteric, mucous membranes moist, other - mouth sores - ? thrush Respiratory/Chest: lungs clear, normal breath sounds, no respiratory distress Cardiovascular: normal rate, regular rhythm, no gallop/murmur, no JVD Abdomen: normal bowel sounds, soft, non tender, no organomegaly Genitourinary: other - penis lesion dryer, less redness, no cva pain Extremities: no cyanosis Skin: rash - rash better Neurologic/Psychiatric: metal framer II-XII grossly normal, no motor/sensory deficits, alert, oriented x 3, responsive Lymphatic: no neck adenopathy Musculoskeletal: no effusion Objective none none Laboratory Tests Test 01/05/18 06:50 White Blood Count 8.7 K/UL (4.8-10.8) Red Blood Count 4.21 M/UL (4.70-6.10) L Hemoglobin 14.9 G/DL (14.2-18.0) Hematocrit 42.4 % (42.0-52.0) Mean Corpuscular Volume 101 FL (80-99) H Mean Corpuscular Hemoglobin 35.4 PG (27.0-31.0) H Mean Corpuscular Hemoglobin Concent 35.2 G/DL (32.0-36.0) Red Cell Distribution Width 12.7 % (11.6-14.8) Platelet Count 162 K/UL (150-450) Mean Platelet Volume 7.0 FL (6.5-10.1) Neutrophils (%) (Auto) 56.5 % (45.0-75.0) Lymphocytes (%) (Auto) 34.6 % (20.0-45.0) Monocytes (%) (Auto) 6.4 % (1.0-10.0) Eosinophils (%) (Auto) 1.3 % (0.0-3.0) Basophils (%) (Auto) 1.2 % (0.0-2.0) Sodium Level 137 MMOL/L (136-145) Potassium Level 4.6 MMOL/L (3.5-5.1) Chloride Level 105 MMOL/L (98-107) Carbon Dioxide Level 28 MMOL/L (21-32) Anion Gap 4 mmol/L (5-15) L Blood Urea Nitrogen 12 mg/dL (7-18) Creatinine 0.7 MG/DL (0.55-1.30) Estimat Glomerular Filtration Rate > 60 mL/min (>60) Glucose Level 94 MG/DL (74-106) Calcium Level 8.8 MG/DL (8.5-10.1) Current Medications Medications (Trade) Dose Ordered Sig/Maryuri Route PRN Reason Start Time Stop Time Status Last Admin Dose Admin Acetaminophen (Tylenol) 650 mg Q4H PRN ORAL Mild Pain/Temp > 100.5 01/02/18 13:30 02/01/18 13:29 01/02/18 17:29 Acyclovir 750 mg/ Sodium Chloride 110 ml @ 110 mls/hr Q8HR@0000,0800,1600 IV 01/02/18 17:00 02/01/18 16:59 01/05/18 07:40 Albuterol/ Ipratropium (Albuterol/ Ipratropium) 3 ml Q4H PRN HHN Shortness of Breath 01/04/18 15:00 01/09/18 14:59 Dexamethasone (Decadron) 0.5 mg QID MISC 01/05/18 09:00 02/02/18 17:59 01/05/18 13:09 Diphenhydramine HCl (Benadryl) 50 mg Q6H PRN ORAL Itching 01/02/18 13:30 02/01/18 13:29 01/05/18 03:42 Fluconazole (Diflucan) 150 mg DAILY ORAL 01/04/18 14:00 01/11/18 13:59 01/05/18 07:41 Heparin Sodium (Porcine) (Heparin 5000 units/ml) 5,000 units EVERY 12 HOURS SUBQ 01/02/18 21:00 02/01/18 20:59 01/04/18 08:24 Hydromorphone HCl (Dilaudid) 4 mg Q4H PRN ORAL pain 01/04/18 13:30 01/11/18 13:29 01/05/18 13:10 Lidocaine (Xylocaine 5% cream) 1 applic PRN PRN TOPIC pain 01/03/18 14:00 02/02/18 13:59 01/03/18 16:57 Lidocaine HCl (Xylocaine Viscous) 15 ml Q4H PRN ORAL For Pain 01/03/18 13:30 02/02/18 13:29 01/04/18 23:14 Lisinopril (Zestril) 30 mg DAILY ORAL 01/02/18 16:30 02/01/18 16:29 01/04/18 08:23 Lorazepam (Ativan) 1 mg Q4H PRN ORAL For Anxiety 01/03/18 13:30 01/10/18 13:29 01/05/18 14:45 Nicotine (Nicoderm) 1 patch Q24H TDERMAL 01/03/18 14:00 02/02/18 13:59 01/05/18 13:09 Ondansetron HCl (Zofran) 4 mg Q6H PRN IVP Nausea & Vomiting 01/02/18 13:30 02/01/18 13:29 Patient Own Medication (Patient's Own Med) 1 ea QPM ORAL 01/02/18 16:30 02/01/18 16:29 01/04/18 16:48 Patient Own Medication (Patient's Own Med) 1 ea QPM ORAL 01/02/18 16:30 02/01/18 16:29 01/04/18 16:48 Patient Own Medication (Patient's Own Med) 1 ea QPM ORAL 01/02/18 16:30 02/01/18 16:29 01/04/18 16:49 Zolpidem Tartrate (Ambien) 5 mg HSPRN PRN ORAL Insomnia 01/02/18 13:30 01/09/18 13:29 01/04/18 23:14 JERRELL FAIRCHILD 4, 2018 16:16
[2018-01-05] MEDS: DESCOVY ORAL SCH (16:54)
[2018-01-05] MEDS: REYATAZ 300 MG ORAL SCH (16:55)
[2018-01-05] MEDS: NORVIR 100 MG ORAL SCH (16:55)
--- NOTE | 2018-01-05 17:22 | Pulmonology Progress Note ---
Subjective Allergies: Coded Allergies: SULFAMETHOXAZOLE (Verified Allergy, Intermediate, 01/02/18) rash TRIMETHOPRIM (Verified Allergy, Intermediate, 01/02/18) rash PREDNISONE (Verified Allergy, Mild, 04/07/14) UPSET STOMACNH VANCOMYCIN (Verified Allergy, Mild, Rash, 04/07/14) Objective Last 24 Hour Vital Signs Date Time Temp Pulse Resp B/P (MAP) Pulse Ox O2 Delivery O2 Flow Rate FiO2 01/05/18 16:55 98.0 01/05/18 16:00 97.8 86 18 112/65 98 Room Air 97.8 01/05/18 14:09 98.0 01/05/18 13:10 98.0 01/05/18 12:00 97.6 83 17 102/68 98 Room Air 97.6 01/05/18 09:14 98.0 01/05/18 08:00 98.0 88 18 98/59 97 Room Air 98.0 01/05/18 04:00 97.7 87 20 110/63 96 Room Air 97.7 01/05/18 00:00 97.3 82 19 106/66 97 97.3 01/04/18 18:35 98.0 Intake and Output 01/04/18 01/05/18 19:00 07:00 Intake Total 830 ml 110 ml Balance 830 ml 110 ml Intake Oral 720 ml IV Total 110 ml 110 ml # Voids 3 4 # Bowel Movements 4 Laboratory Tests 01/05/18 06:50: White Blood Count 8.7, Red Blood Count 4.21L, Hemoglobin 14.9, Hematocrit 42.4, Mean Corpuscular Volume 101H, Mean Corpuscular Hemoglobin 35.4H, Mean Corpuscular Hemoglobin Concent 35.2, Red Cell Distribution Width 12.7, Platelet Count 162, Mean Platelet Volume 7.0, Neutrophils (%) (Auto) 56.5, Lymphocytes (% ) (Auto) 34.6, Monocytes (%) (Auto) 6.4, Eosinophils (%) (Auto) 1.3, Basophils ( %) (Auto) 1.2, Sodium Level 137, Potassium Level 4.6, Chloride Level 105, Carbon Dioxide Level 28, Anion Gap 4L, Blood Urea Nitrogen 12, Creatinine 0.7, Estimat Glomerular Filtration Rate > 60, Glucose Level 94, Calcium Level 8.8 Current Medications Medications (Trade) Dose Ordered Sig/Maryuri Route PRN Reason Start Time Stop Time Status Last Admin Dose Admin Acetaminophen (Tylenol) 650 mg Q4H PRN ORAL Mild Pain/Temp > 100.5 01/02/18 13:30 02/01/18 13:29 01/02/18 17:29 Acyclovir 750 mg/ Sodium Chloride 110 ml @ 110 mls/hr Q8HR@0000,0800,1600 IV 01/02/18 17:00 02/01/18 16:59 01/05/18 16:54 Albuterol/ Ipratropium (Albuterol/ Ipratropium) 3 ml Q4H PRN HHN Shortness of Breath 01/04/18 15:00 01/09/18 14:59 Dexamethasone (Decadron) 0.5 mg QID MISC 01/05/18 09:00 02/02/18 17:59 01/05/18 16:55 Diphenhydramine HCl (Benadryl) 50 mg Q6H PRN ORAL Itching 01/02/18 13:30 02/01/18 13:29 01/05/18 03:42 Fluconazole (Diflucan) 150 mg DAILY ORAL 01/04/18 14:00 01/11/18 13:59 01/05/18 07:41 Heparin Sodium (Porcine) (Heparin 5000 units/ml) 5,000 units EVERY 12 HOURS SUBQ 01/02/18 21:00 02/01/18 20:59 01/04/18 08:24 Hydromorphone HCl (Dilaudid) 4 mg Q4H PRN ORAL pain 01/04/18 13:30 01/11/18 13:29 01/05/18 16:55 Lidocaine (Xylocaine 5% cream) 1 applic PRN PRN TOPIC pain 01/03/18 14:00 02/02/18 13:59 01/03/18 16:57 Lidocaine HCl (Xylocaine Viscous) 15 ml Q4H PRN ORAL For Pain 01/03/18 13:30 02/02/18 13:29 01/04/18 23:14 Lisinopril (Zestril) 30 mg DAILY ORAL 01/02/18 16:30 02/01/18 16:29 01/04/18 08:23 Lorazepam (Ativan) 1 mg Q4H PRN ORAL For Anxiety 01/03/18 13:30 01/10/18 13:29 01/05/18 14:45 Nicotine (Nicoderm) 1 patch Q24H TDERMAL 01/03/18 14:00 02/02/18 13:59 01/05/18 13:09 Ondansetron HCl (Zofran) 4 mg Q6H PRN IVP Nausea & Vomiting 01/02/18 13:30 02/01/18 13:29 Patient Own Medication (Patient's Own Med) 1 ea QPM ORAL 01/02/18 16:30 02/01/18 16:29 01/05/18 16:54 Patient Own Medication (Patient's Own Med) 1 ea QPM ORAL 01/02/18 16:30 02/01/18 16:29 01/05/18 16:55 Patient Own Medication (Patient's Own Med) 1 ea QPM ORAL 01/02/18 16:30 02/01/18 16:29 01/05/18 16:55 Zolpidem Tartrate (Ambien) 5 mg HSPRN PRN ORAL Insomnia 01/02/18 13:30 01/09/18 13:29 01/04/18 23:14 Darius ([facility])Kathy NP Jan 05, 2018 17:22
--- NOTE | 2018-01-05 17:23 | General Progress Note ---
Assessment/Plan Assessment/Plan coverage for dr Alcaraz ASSESSMENT Refractory genital herpes simplex virus of the glans penis Drug rash secondary to Bactrim. HIV status with viral load undetectable. Hypertension. Asthma. Anxiety Insomnia Multiple allergies: Prednisone, Bactrim, vancomycin Nicotine dependency with withdrawal Hx of ETOH abuse PLAN OF CARE MS floor IV acyclovir ID follows oral steroids for rash viscous Xylocaine swish and swallow bland diet topical therapy for glans penis with Xylocaine cream a/pruritic prn pain management ( changed to Dilaudid), monitor effectiveness BP management Nicotine patch , area counselor on smoking cessation area counselor to continue abstinence from ETOH ART therapy, viral load undetectable BP management with JEMAL and closely monitor BP O2 HHN prn, no evidence of asthma exacerbation anxiolytics prn Ambien prn case discussed and evaluated by supervising physician Subjective Allergies: Coded Allergies: SULFAMETHOXAZOLE (Verified Allergy, Intermediate, 01/02/18) rash TRIMETHOPRIM (Verified Allergy, Intermediate, 01/02/18) rash PREDNISONE (Verified Allergy, Mild, 04/07/14) UPSET STOMACNH VANCOMYCIN (Verified Allergy, Mild, Rash, 04/07/14) Subjective pain and discomfort in the mouth afebrile, no leukocytosis Objective Last 24 Hour Vital Signs Date Time Temp Pulse Resp B/P (MAP) Pulse Ox O2 Delivery O2 Flow Rate FiO2 01/05/18 16:55 98.0 01/05/18 16:00 97.8 86 18 112/65 98 Room Air 97.8 01/05/18 14:09 98.0 01/05/18 13:10 98.0 01/05/18 12:00 97.6 83 17 102/68 98 Room Air 97.6 01/05/18 09:14 98.0 01/05/18 08:00 98.0 88 18 98/59 97 Room Air 98.0 01/05/18 04:00 97.7 87 20 110/63 96 Room Air 97.7 01/05/18 00:00 97.3 82 19 106/66 97 97.3 01/04/18 18:35 98.0 Intake and Output 01/04/18 01/05/18 19:00 07:00 Intake Total 830 ml 110 ml Balance 830 ml 110 ml Intake Oral 720 ml IV Total 110 ml 110 ml # Voids 3 4 # Bowel Movements 4 Laboratory Tests 01/05/18 06:50: White Blood Count 8.7, Red Blood Count 4.21L, Hemoglobin 14.9, Hematocrit 42.4, Mean Corpuscular Volume 101H, Mean Corpuscular Hemoglobin 35.4H, Mean Corpuscular Hemoglobin Concent 35.2, Red Cell Distribution Width 12.7, Platelet Count 162, Mean Platelet Volume 7.0, Neutrophils (%) (Auto) 56.5, Lymphocytes (% ) (Auto) 34.6, Monocytes (%) (Auto) 6.4, Eosinophils (%) (Auto) 1.3, Basophils ( %) (Auto) 1.2, Sodium Level 137, Potassium Level 4.6, Chloride Level 105, Carbon Dioxide Level 28, Anion Gap 4L, Blood Urea Nitrogen 12, Creatinine 0.7, Estimat Glomerular Filtration Rate > 60, Glucose Level 94, Calcium Level 8.8 Height (Feet): 5 Height (Inches): 8.00 Weight (Pounds): 171 Objective General Appearance: WD/WN - A/A/O x 4v , no apparent distress EENT: PERRL/EOMI, aphthous type ulcers underside of tongue and on soft palate, no thrush. Neck: non-tender, supple Cardiovascular: normal peripheral pulses, normal rate, no JVD Respiratory/Chest: chest wall non-tender, lungs clear, no accessory muscle use Abdomen: normal bowel sounds, non tender, soft Genitourinary/Rectal: penis lesions drying Extremities: normal range of motion, no calf tenderness Neurologic: no motor/sensory deficits, alert, oriented x 3, responsive, normal mood/affect Skin: warm/dry, maculopapular body rash getting pale Kathy Mccoy NP ([facility]) Jan 05, 2018 17:23
[2018-01-05] MEDS ORDERED: Tubing IV Secondary IV ONE (17:30)
[2018-01-05] MEDS ORDERED: NS 275ml ONE (17:30)
[2018-01-05] MEDS: Lidocaine 2% Visc 15ml soln ORAL PRN (21:49)
[2018-01-05] MEDS: Zolpidem 5mg tab ORAL PRN (21:51)
[2018-01-06] VITALS: BP 104/59
[2018-01-06] MEDS: Acyclovir 750 MG in NS 110 ML IV SCH ×3 (00:28→15:32)
[2018-01-06] MEDS: HYDROmorphone 4mg tab ORAL PRN ×4 (03:53→17:37)
[2018-01-06 04:35] VITALS: BP 99/64
[2018-01-06] MEDS: LORazepam 0.5mg tab ORAL PRN ×3 (06:32→16:41)
[2018-01-06 08:00] VITALS: BP 120/77
[2018-01-06 08:02] LABS: EOSINOPHILS % (AUTO) 3.1 % (0.0-3.0); HEMATOCRIT 40.5 % (42.0-52.0); HEMOGLOBIN 14.2 G/DL (14.2-18.0); LYMPHOCYTES % (AUTO) 38.9 % (20.0-45.0); MEAN CORPUSCULAR VOLUME 99 FL (80-99); MONOCYTES % (AUTO) 8.4 % (1.0-10.0); NEUTROPHILS % (AUTO) 48.6 % (45.0-75.0); PLATELET COUNT 177 K/UL (150-450); RED BLOOD COUNT 4.08 M/UL (4.70-6.10); RED CELL DISTRIBUTION WIDTH 12.1 % (11.6-14.8); WHITE BLOOD COUNT 6.7 K/UL (4.8-10.8)
[2018-01-06 08:33] LABS: ANION GAP 5 mmol/L (5-15); BLOOD UREA NITROGEN 14 mg/dL (7-18); CARBON DIOXIDE 29 MMOL/L (21-32); CHLORIDE 105 MMOL/L (98-107); CREATININE 0.7 MG/DL (0.55-1.30); POTASSIUM 4.1 MMOL/L (3.5-5.1); SODIUM 139 MMOL/L (136-145)
[2018-01-06] MEDS: Lisinopril 10mg tab ORAL SCH (08:34)
[2018-01-06] MEDS: Fluconazole 100mg tab ORAL SCH (08:34)
[2018-01-06] MEDS: Dexamethasone Elixir 0.25mg/2.5ml MISC SCH ×2 (08:34→13:44)
[2018-01-06] MEDS: Lidocaine 2% Visc 15ml soln ORAL PRN (08:35)
[2018-01-06] MEDS: Heparin 5000 units/ml inj SUBQ SCH (08:50)
[2018-01-06 12:00] VITALS: BP 101/61
--- NOTE | 2018-01-06 15:49 | General Progress Note ---
Progress Note Progress Note Afebrile. Underside of tongue and soft palate hurt worse than penis. Penis healing with scab in middle of top of glans. Exam: apthous type ulcers underside of tongue and on soft palate, no thrush. Penis healing scab on middle of glans, rest looks superficial erosion. Assess: HSV responding, pt cannot tolerate hospital and wants to treat as outpatient Mouth lesions probably a part of sulfa reaction. Plan: home on valtrex 1 gram qid, dilaudid 4 mg q 6h, viscous xylocaine. D/C. topical lidocaine ointment. Fernandez Alcaraz M.D. FERNANDEZ ALCARAZ Jan 06, 2018 15:49
[2018-01-06] MEDS ORDERED: LISINOPRIL10 MG ORAL (15:55)
[2018-01-06] MEDS ORDERED: DILAUDID4 MG ORAL (15:55)
[2018-01-06] MEDS ORDERED: DECADRON0.25 MG/2. MISC (15:55)
[2018-01-06 16:00] VITALS: BP 113/66
[2018-01-06] MEDS: REYATAZ 300 MG ORAL SCH (16:41)
[2018-01-06] MEDS: NORVIR 100 MG ORAL SCH (16:41)
[2018-01-06] MEDS: DESCOVY ORAL SCH (16:42)
--- NOTE | 2018-01-08 13:07 | Discharge Summary ---
Discharge Summary Hospital Course Date of Admission Jan 02, 2018 at 12:01 Date of Discharge Jan 06, 2018 at 18:47 Admitting Diagnosis HPI Callum Ortez is a 52 year old male who was admitted on Jan 02, 2018 at 12:01 for Acyclovir Resistent Herpes Hospital Course dc summary #[id number] Discharge Medications New Medications: PENDING: Dexamethasone (Dexamethasone) 0.5 Mg/5 Ml Solution 0.5 MG MISC QID for 10 Days, #100 ML 2 Refills PENDING: Hydromorphone HCl (Dilaudid) 4 Mg Tablet 4 MG ORAL Q4H PRN for 7 Days, #30 TAB PENDING: Lisinopril* (Lisinopril*) 10 Mg Tablet 30 MG ORAL DAILY for 30 Days, TAB 3 Refills Continued Medications: Atazanavir Sulfate (Reyataz) 150 Mg Cap 300 MG ORAL DAILY, #30 CAP Diazepam* (Valium*) 10 Mg Tab 7.5 MG ORAL Q6H, #60 TAB Emtricitabine/Tenofovir (Truvada 200 mg-300 mg Tablet) 1 Tab Tab 1 TAB ORAL DAILY, #30 TAB Ritonavir* (Norvir*) 100 Mg Cap 100 MG ORAL DAILY, #30 CAP Zolpidem Tartrate* (Ambien*) 10 Mg Tablet 10 MG ORAL HS PRN for Insomnia, TAB Discharge Condition Upon Discharge: stable Discharge Disposition Patient was discharged to Home () Discharge Diagnoses: Darius (Janny)Kathy NP Jan 08, 2018 13:07
--- NOTE | 2018-01-09 03:45 | Discharge Summary 2 SIG ---
DATE OF ADMISSION: 01/02/2018 DATE OF DISCHARGE: 01/06/2018 REASON FOR ADMISSION: 52-year-old male with HIV history admitted with apparent acyclovir-resistant to herpes involving the glans penis and prepuce. He also had a new generalized skin eruption likely secondary to sulfa antibiotics. The patient had a two-week history of flare of genital herpes involving the glans penis, which was extremely painful. He was previously on suppressive therapy with acyclovir 800 mg daily at the time new lesions appeared. He only had one or two prior outbreaks. The lesions progressed despite increasing dose of acyclovir and then subsequently changing medication to valacyclovir 1000 mg p.o. q.8 hours. He also had a small purulent skin lesion on his left cheek for which he was prescribed Bactrim and unfortunately in the morning, he developed maculopapular rash with pruritus likely due to Bactrim/sulfa allergy. The patient was seen in Medical Office earlier prior to admission and seemed to have a complete erosion of the skin of the dorsum of the glans penis and purulence involving the area of the prepuce. He was in significant pain and discomfort and in view of likelihood that his herpes was possibly acyclovir-resistant, he was admitted for further management. The patient with past medical history of long-standing HIV with undetectable viral load, on antiviral therapy, and history of alcohol abuse, was sober for several years. Past medical history also significant for asthma, reactive airway disease, insomnia, essential hypertension, testicular hypofunction, generalized anxiety disorder, and hyperlipidemia. ADMITTING DIAGNOSES: 1. Possibly acyclovir-resistant herpes simplex virus infection of the glans penis. 2. Sulfa allergy, new onset with maculopapular rash. 3. History of asthma and reactive airway disease. 4. Vancomycin allergy. 5. Hypogonadism. 6. Hyperlipidemia. 7. Insomnia. 8. Anxiety. HOSPITAL COURSE: The patient was admitted. ID consult was requested. The patient was started on the intravenous acyclovir. The patient was started on the topical therapy for the glans penis HSV infection. Pain management provided. Anxiety and insomnia management addressed. The patient was started initially on steroids for rash along with the topical lidocaine to penis lesions and oral lidocaine swish and spit for mouth lesions. The patient was on bland diet. Antipyretic provided as needed. Pain management optimized. Morphine was changed to Dilaudid, which was more effective in pain management. Blood pressure was managed with JEMAL inhibitor and was closely monitored. The patient was on nicotine patch and was counseled on smoking cessation. The patient was counseled to continue abstinence from alcohol. The patient was on ART therapy, continued from home. Supplemental oxygen and pulmonary toilet were on the standby. No evidence of asthma exacerbation. Pulse oximetry stable on room air. The patient was on anxiolytic and Ambien as needed for anxiety and insomnia respectfully. Wound care nurse seen the patient regarding generalized rash and genital herpes. No wound care was recommended at that time. Continue with the medical doctor orders. The patient had aphthous type ulcers underside of the tongue and under soft palate. No thrush. The penis with a healing scab on the middle of glans and rest looked like superficial erosions. The patient was responsive to IV acyclovir and wanted to continue as outpatient. Mouth lesions likely part of sulfa reaction. The patient was stable for discharge home on Valtrex 1 gm q.i.d., Dilaudid oral 4 mg q.6 hours, and viscous Xylocaine. Topical lidocaine ointment was discontinued. The patient was stable for discharge. FINAL DIAGNOSES: 1. 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 Drug rash secondary to Bactrim, improved. 3. Human immunodeficiency virus status with undetectable viral load. 4. Hypertension. 5. History of asthma and reactive airway disease 6. Anxiety. 7. Insomnia. 8. Multiple allergies including prednisone, Bactrim, and vancomycin. 9. Nicotine dependency with withdrawal. 10. History of alcohol abuse. DISCHARGE MEDICATIONS: See medication reconciliation list. DISCHARGE INSTRUCTIONS: The patient was discharged home. Follow up with HIV provider next week. Trevor Alcaraz M.D. Kathy [facility]Rosi N.P. DR: KIMANI JOB#: [id number] CC: ROBERTO
--- NOTE | 2018-01-14 02:00 | Discharge Summary ---
DATE OF ADMISSION: 01/02/2018 DATE OF DISCHARGE: 01/06/2018 HISTORY OF PRESENT ILLNESS: The patient is a 52-year-old, HIV positive, martini white male, admitted with nonhealing ulcerative herpes simplex of the glans penis and a generalized hypersensitivity reaction to trimethoprim and sulfa. HOSPITAL COURSE: The patient was admitted and was seen in Infectious Disease consultation by Dr. Pearson. He was started on intravenous acyclovir 10 mg/kg every eight hours and this was continued for the four-day hospitalization. He had significant pain related to the penile lesion and was prescribed topical lidocaine cream. He had mouth ulcerations due to the sulfa reaction and he was prescribed oral dexamethasone solution to swish and spit. He was briefly prescribed intravenous Solu-Medrol for the diffuse maculopapular rash secondary to the sulfa hypersensitivity reaction. He was prescribed pain medication for the penile and oral lesions. His HIV medications were continued throughout the hospitalization. His condition improved and he was discharged in satisfactory condition. DISCHARGE DIAGNOSES: 1. 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 2. Maculopapular rash and oral ulcerations secondary to sulfa hypersensitivity. 3. Human immunodeficiency virus. 4. Asthma. DISCHARGE MEDICATIONS: He was discharged on acyclovir 800 mg every four hours, Dilaudid 4 mg p.r.n. pain, topical lidocaine, and dexamethasone oral suspension rinse. PLAN: He will be seen in the private office in one week. Trevor Alcaraz M.D. DR: Donte JOB#: [id number] CC:
== END 2018-01-06 18:47 | disposition home or self-care (01) | DRG 975 ==
LOC: 4W 12:01
DX: A60.01 Herpesviral infection of penis (principal); B20 Human immunodeficiency virus [HIV] disease; F17.203 Nicotine dependence unspecified, with withdrawal; I10 Essential (primary) hypertension; E29.1 Testicular hypofunction; Z16.33 Resistance to antiviral drug(s); F41.9 Anxiety disorder, unspecified; G47.00 Insomnia, unspecified; Z88.1 Allergy status to other antibiotic agents; Z88.8 Allergy status to other drugs, medicaments and biological substances; Z88.2 Allergy status to sulfonamides; J45.909 Unspecified asthma, uncomplicated; E78.5 Hyperlipidemia, unspecified; F10.21 Alcohol dependence, in remission
CPT/HCPCS: 36415; 80048; 80053; 82248; 82962; 85025; 94664

== ENCOUNTER 2018-08-25 10:20 | Outpatient (RCR) | payer MEDICARE, MEDICAID ==
[~2018-08-25 10:20] MED LIST changes: +DECADRON0.25 MG/2. MISC; +DILAUDID4 MG ORAL; +LISINOPRIL10 MG ORAL
== END 2018-09-03 | disposition home or self-care (01) ==
LOC: PTY 10:20
DX: M54.10 Radiculopathy, site unspecified (principal); M25.511 Pain in right shoulder
CPT/HCPCS: 97110; 97140; 97161; G8981; G8982

== ENCOUNTER 2018-09-08 10:30 | Outpatient (RCR) | payer MEDICARE, MEDICAID | END 2018-10-03 | disposition home or self-care (01) | LOC: PTY 10:30 | DX: M54.10 Radiculopathy, site unspecified (principal); M25.511 Pain in right shoulder ==